=== PATIENT | male | born 1935 | race Caucasian/White ===

== ENCOUNTER 2023-04-15 13:23 | Outpatient (RCR) | payer MEDICARE, OTHER, SELFPAY | END 2023-04-15 23:59 | disposition home or self-care (01) | LOC: RPT 13:23 | PROVIDERS: ATTENDING PHYSICIAN Internal Medicine; FAMILY PHYSICIAN Family Medicine | DX: R26.89 Other abnormalities of gait and mobility (principal); Z73.6 Limitation of activities due to disability | CPT/HCPCS: 97110; 97162; 97535 ==

== ENCOUNTER 2023-04-29 15:10 | Outpatient (RCR) | payer MEDICARE, OTHER, SELFPAY | END 2023-04-29 23:59 | disposition home or self-care (01) | LOC: RPT 15:10 | PROVIDERS: ATTENDING PHYSICIAN Internal Medicine; FAMILY PHYSICIAN Family Medicine | DX: R26.89 Other abnormalities of gait and mobility (principal); Z73.6 Limitation of activities due to disability | CPT/HCPCS: 97110 ==

== ENCOUNTER → 2023-06-27 11:28 | Outpatient (REF) | payer MEDICARE, OTHER, SELFPAY | LOC: RAD 11:28 | PROVIDERS: ATTENDING PHYSICIAN Nurse Practitioner Primary Care; FAMILY PHYSICIAN Family Medicine | DX: C84.08 Mycosis fungoides, lymph nodes of multiple sites (principal); C61 Malignant neoplasm of prostate; C79.51 Secondary malignant neoplasm of bone; C78.7 Secondary malignant neoplasm of liver and intrahepatic bile duct; Z51.12 Encounter for antineoplastic immunotherapy | CPT/HCPCS: 71046 ==

== ENCOUNTER → 2023-09-30 08:39 | Outpatient (REF) | payer MEDICARE, OTHER, SELFPAY | LOC: RAD 08:39 | PROVIDERS: ATTENDING PHYSICIAN Internal Medicine Hematology & Oncology | DX: C84.08 Mycosis fungoides, lymph nodes of multiple sites (principal); C61 Malignant neoplasm of prostate; C79.51 Secondary malignant neoplasm of bone; C78.7 Secondary malignant neoplasm of liver and intrahepatic bile duct; Z51.12 Encounter for antineoplastic immunotherapy | CPT/HCPCS: 71046 ==

== ENCOUNTER → 2023-10-16 11:45 | Outpatient (REF) | payer MEDICARE, BC, SELFPAY | LOC: HWRAD 11:45 | PROVIDERS: ATTENDING PHYSICIAN Nurse Practitioner Family; FAMILY PHYSICIAN Family Medicine | DX: C84.08 Mycosis fungoides, lymph nodes of multiple sites (principal); C61 Malignant neoplasm of prostate | CPT/HCPCS: 71250 ==

== ENCOUNTER 2024-02-05 13:08 | Inpatient (IN) | payer MEDICARE, BC, SELFPAY ==
[2024-02-05] VITALS (10 sets, daily range): BP systolic 92–141; BP diastolic 50–75; BMI 21.7
[2024-02-05 10:05] LABS: % Basophils 0.3 % (0-2); % Eosinophils 0.4 % (0-6); % Immature Granulocytes 0.6 % (0-0.5); % Lymphocytes 5.2 % (20.5-51.1); % Monocytes 9.6 % (1.7-9.3); % Neutrophils 83.9 % (42.2-75.2); Absolute Eosinophils 0.1 10^3/uL (0-0.7); Absolute Immature Granulocytes 0.1 10^3/uL (0-0.05); Absolute Lymphocytes 0.7 10^3/uL (1.2-3.4); Absolute Monocytes 1.3 10^3/uL (0.1-0.6); Absolute Neutrophils 11.7 10^3/uL (1.4-6.5); Hematocrit 33.9 % (39.0-52.0); Hemoglobin 11.2 g/dL (13.0-18.0); Mean Corpuscular Hgb 32.2 pg (27.0-31.0); Mean Corpuscular Volume 97.4 fL (80.0-94.0); Mean Platelet Volume 10.4 fL (7.4-10.4); Nucleated Red Blood Cells % 0 % (-); Platelet Count 219 10^3/uL (130-400); Red Blood Cell Count 3.48 10^6/uL (4.70-6.10); Red Cell Dist. Width 15.9 % (11.5-14.5); White Blood Cell Count 13.9 10^3/uL (4.8-10.8)
[2024-02-05 10:18] LABS: ALT (SGPT) 80 U/L (0-50); AST (SGOT) 98 U/L (17-59); Albumin 4.4 g/dl (3.5-5.0); Alkaline Phosphatase 192 U/L (38-126); Blood Urea Nitrogen 40 mg/dl (9-20); Calcium 9.9 mg/dl (8.4-10.2); Carbon Dioxide 24 mmol/L (22-30); Chloride 103 mmol/L (98-107); Estimated Creatinine Clearance 24 ml/min; Glucose 120 mg/dl (70-99); Lipase 224 U/L (23-300); Potassium 3.5 mmol/L (3.5-5.1); Sodium 140 mmol/L (135-145); Total Bilirubin 0.7 mg/dl (0.2-1.3); eGFR 38.06
--- NOTE | 2024-02-05 10:29 | ED.GENMED ---
History of Present Illness
General
Chief Complaint: Bowel Problem
Source: patient and family
Exam Limitations: none
Time Seen by Provider: 02/05/24 09:59
History of Present Illness
History of Present Illness:
This is an 88-year-old male with a history of hypertension, hyperlipidemia metastatic prostate cancer who presents with severe constipation. He reports rectal pain and some lower abdominal discomfort. He admits he has been dealing with
constipation for a long time and no one can figure it out but over the last several days he has had real difficulties. He states he sometimes does get some loose stool that leaks out of his rectum. Patient did feel feverish today. He states he is
seeing colorectal surgery. He has tried many different medications without success. He states his hands are not strong enough to do an enema. Denies urinary complaint
Past History
Past History
ED Past Medical History: Cancer (Metastatic prostate cancer), GERD, HTN and Hypercholesterolemia
ED Past Surgical History: Orthopedic and Urological
Social History
Tobacco: Non-smoker
Alcohol: None
Drug: None
Personal: Other ()
Living: alone
Phy Exam
Physical Exam
Physical Exam:
CONSTITUTIONAL Patient alert and oriented to person, place and time. Well-appearing. Vital signs reviewed. Temperature 101.2 on my exam
HEAD atraumatic, normocephalic.
EYES eyelids normal to inspection, Extraocular muscles intact, Conjunctiva normal, Sclera normal.
NECK normal range of motion, Trachea midline, no jugular venous distention.
RESPIRATORY CHEST No respiratory distress noted, Chest expansion equal.
CARDIOVASCULAR regular and tachycardic
ABDOMEN abdomen distended. Moderate tenderness throughout the abdomen.
BACK normal inspection, no obvious deformities
UPPER EXTREMITY range of motion normal, Motor strength normal, no cyanosis, no edema.
LOWER EXTREMITY range of motion normal, Motor strength normal, no cyanosis, no edema.
NEURO Speech normal, No focal motor deficits, Jabier coma scale 15, Memory normal, Cranial Nerves intact to screening exam.
SKIN skin warm, dry, and normal in color.
Rectal exam, no gross blood. Perirectal area without evidence of infection
Course
Orders/Labs/Results
Orders:
Orders
02/05/24 09:58
Complete Blood Count/With Diff Urgent
Comprehensive Metabolic Panel Urgent
Lipase Urgent
02/05/24 10:24
Straight cath- Treatment ONCE
02/05/24 10:25
CT Abd/Pel (IV only)-DH only Urgent
Comment:
Reason For Exam: lower abd pain, fever, constipation
0.9% Sodium Chloride 1000 ml [Nss] 1,000 ml IV BOLUS
Acetaminophen [Tylenol] 1,000 mg PO NOW STA
02/05/24 10:37
Lactic Acid Q4H
Comment: CANCEL 2nd LACTIC ACID IF 1st LACTIC ACID IS LESS THAN 2
Blood Culture Q30M
NING Source: Blood/Venous
Specimen Description:
02/05/24 10:41
Urinalysis Reflex To Culture Urgent
Date Specimen was Collected: 02/05/24
Time Specimen was Collected: 10:36
Urine Microscopic Reflex Cult Urgent
Blood Culture Q30M
NING Source: Blood/Venous
Specimen Description:
02/05/24 11:31
COVID-19 Antigen Urgent
Source: Nasal Swab
02/05/24 11:51
Cefepime HCl [Maxipime] 1,000 mg IV NOW STA
MetroNIDAZOLE IVPB 500 mg IVPB NOW MetroNIDAZOLE 500 MG/100 ML [Flagyl 500 mg] 100 ml IV NOW
02/05/24 11:52
*Vancomycin 1,500 mg Loading Dose(consider for 50-69 kg; MAX HD load) Vancomycin [Vancocin] 1,500 mg 0.9% Sodium Chloride 500 ml [Nss] 500 ml IV NOW
Abnormal Lab Results
02/05/24 02/05/24
0958 10:41
WBC 13.9 H 10^3/uL
(4.8-10.8)
RBC 3.48 L 10^6/uL
(4.70-6.10)
Hgb 11.2 L g/dL
(13.0-18.0)
Hct 33.9 L %
(39.0-52.0)
MCV 97.4 H fL
(80.0-94.0)
MCH 32.2 H pg
(27.0-31.0)
RDW 15.9 H %
(11.5-14.5)
Abs Immat Gran (auto) 0.1 H 10^3/uL
(0-0.05)
Absolute Neuts (auto) 11.7 H 10^3/uL
(1.4-6.5)
Absolute Lymphs (auto) 0.7 L 10^3/uL
(1.2-3.4)
Absolute Monos (auto) 1.3 H 10^3/uL
(0.1-0.6)
Immature Gran % 0.6 H %
(0-0.5)
Neutrophils % 83.9 H %
(42.2-75.2)
Lymphocytes % 5.2 L %
(20.5-51.1)
Monocytes % 9.6 H %
(1.7-9.3)
BUN 40 H mg/dl
(9-20)
Creatinine 1.7 H mg/dL
(0.7-1.3)
Glucose 120 H mg/dl
(70-99)
AST 98 H U/L
(17-59)
ALT 80 H U/L
(0-50)
Alkaline Phosphatase 192 H U/L
(38-126)
Urine Albumin (Reflex) 1+ A
(Neg - Trace)
02/05/24 09:58
02/05/24 09:58
Vital Signs
Temp: 101.2 F
Initial and Last Documented VS:
Initial Vital Signs
Temp Pulse Resp BP Pulse Ox
98.4 F 121 18 114/74 97
02/05/24 09:42 02/05/24 09:42 02/05/24 09:42 02/05/24 09:42 02/05/24 09:42
Last Documented Vital Signs
Temp Pulse Resp BP Pulse Ox
99.3 F 106 17 103/50 96
02/05/24 11:32 02/05/24 11:15 02/05/24 11:15 02/05/24 11:15 02/05/24 11:15
MDM/Problems Addressed
MDM/Problems Addressed:
Constipation, fever, possible colitis, possible common bile duct obstruction
*Pulse Oximetry
Patient hypoxic: no
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
Rate: tachycardiac
Interpretation: abnormal
Rhythm: sinus
*Critical Care Note
Total Time (30-74mins, 75-104mins- exclusive of procedures): Not Applicable
Data Reviewed
Review of Other/Old Records Reveals: Discharge Summary
Source: patient and family
Prescriptions/Medications Considered But Not Given:
Considered Zosyn but patient reports rash when he was young. I do think it is reasonable to progress with cephalosporin
Patient Management
Discussion with other providers: Hospitalist
Escalation/DeEscalation of care consider admission/obs:
88-year-old male who presents with complaints of abdominal discomfort, constipation and found to be febrile. Does have a leukocytosis with left shift and recently stopped chemotherapy. Did present with mild hypotension and tachycardia which has
improved. CT shows questionable colitis. Does have filling defects in the biliary tree but bilirubin normal and no pericholecystic fluid. Cover with broad-spectrum antibiotics and admit.
ED Attending Note
-
Portions of this chart may have been created with voice recognition software.� Occasional wrong word or��sound alike� substitutions may have occurred due to the inherent limitations of voice recognition software.
Discharge Plan
Departure
Patient Disposition: Admit
Date of Disposition: 02/05/24
Time of Disposition: 11:55
Presentation/result/management discussed w/ accepting MD/DO: Hospitalist
Discharge Problem:
Sepsis, Constipation, Possible colitis, Possible partial biliary obstruction
Prescriptions:
No Action
atorvastatin 40 MG tablet
40 mg PO QPM
lorazepam 0.5 MG tablet
0.5 mg PO HS PRN (Reason: sleep)
famotidine 40 mg Tablet
40 mg PO HS
Lupron Depot (6 Month) 45 mg Syringe Kit
45 mg IM [id number]
amlodipine 5 mg Tablet
5 mg PO DAILY
losartan-hydrochlorothiazide 50-12.5 mg Tablet
1 tab PO DAILY
calcium carbonate-vitamin D3 [Calcium 600 + D(3)] 600 mg-10 mcg (400 unit) Tablet
1 tab PO BID
Xtandi 40 mg Tablet
120 mg PO DAILY@1200
polyethylene glycol 3350 [Miralax] 17 gram Powder In Packet
17 g PO DAILY
ferrous sulfate [Iron (ferrous sulfate)] 325 mg (65 mg iron) Tablet
325 mg PO DAILY
acetaminophen 325 mg Tablet
650 mg PO Q4HPRN PRN (Reason: mild pain /fever >100.4) Qty: 1 0RF
tramadol 50 mg Tablet
50 mg PO Q6HPRN PRN (Reason: moderate pain) Qty: 20 0RF
Referrals:
Quincy Higgins DO [Family Provider] -
Interventions
Interventions:
*Risk Screen - Suicide Last Done: 02/05/24 09:42
*General Assessment Last Done: 02/05/24 09:42
*Neglect/Abuse Screening Last Done: 02/05/24 09:42
ED- Fall Risk Assessment Last Done: 02/05/24 09:54
*ED COVID-19 Vaccine History Last Done: 02/05/24 09:54
[facility] Assessment Last Done: 02/05/24 09:54
Discharge Date and Time
Print Language: EAST [place]
[2024-02-05] MEDS: TYLENOL 1000 MG PO (10:30)
[2024-02-05] MEDS: NSS 1000 IV (10:30)
[2024-02-05 11:03] LABS: Urine Albumin 1+ (Neg - Trace); Urine Bilirubin Negative (Negative); Urine Character Clear (Clear); Urine Color Yellow; Urine Glucose Negative (Negative); Urine Ketone Negative (Negative); Urine Leukocyte Negative (Negative); Urine Nitrite Negative (Negative); Urine Occult Blood Negative (Negative); Urine Urobilinogen Negative (Neg - 1+); Urine pH 6.5 (5.0-9.0)
[2024-02-05 11:05] LABS: Lactic Acid 1.5 mmol/L (0.7-2.0)
[2024-02-05] MEDS: MAXIPIME 1000 MG IV ×2 (11:57→23:56)
[2024-02-05] MEDS: FLAGYL 500 MG 100 IV (12:00)
[2024-02-05 12:16] LABS: COVID-19 Antigen Negative (Negative)
--- NOTE | 2024-02-05 12:30 | HPS.HSE ---
Family Physician
-
Family Physician: Quincy Higgins
Chief Complaint
-
constipation
History of Present Illness
HPI
88F HX Metastatic Prostate CA s/p XRT HTN, HLD, -year-old male with a history of hypertension, HLD een at ER:
- reports severe constipation had been dealing with it for a long time and he has had real difficulties.
- associated rectal pain and some lower abdominal discomfort.
- sometimes does get some loose stool that leaks out of his rectum.
- report feverish today
- Denies urinary complaint
At ER:
Tmax 102 , ST, Hypotensive
New abn LFTs with nl TB
Medical History
Past Medical History
Past Medical History: Reports Cancer (Prostate), GERD and HTN
Past Surgical History: Reports Orthopedic
Social History
Tobacco: Non-smoker
Alcohol: None
Drug: None
Family History
Family History: Not pertinent
Allergies / Home Medications
Allergies reflects when Allergies were last updated in [email or web address].
Home Medications with original date entered in [email or web address]
Allergy/Medication List:
Allergies
Allergy/AdvReac Type Severity Reaction Status Date / Time
Penicillins Allergy Hives Verified 03/08/23 09:19
sulfamethoxazole Allergy Rash Verified 03/08/23 09:19
[From Bactrim]
trimethoprim [From Bactrim] Allergy Rash Verified 03/08/23 09:19
ciprofloxacin AdvReac Mild Pharmacy Verified 03/08/23 09:19
to Review
levofloxacin [From Levaquin] AdvReac Pharmacy Verified 03/08/23 09:19
to Review
Home Medications
atorvastatin 40 mg tablet 40 mg PO QPM High Cholesterol 02/14/18
lorazepam 0.5 mg tablet 0.5 mg PO HS PRN sleep 02/14/18
famotidine 40 mg tablet 40 mg PO HS Gastrointestinal Issue 11/16/22
leuprolide acetate (6 month) 45 mg intramuscular syringe kit (Lupron Depot) 45 mg IM [id number] prostate cancer 11/16/22
amlodipine 5 mg tablet 5 mg PO DAILY Blood Pressure 03/08/23
calcium carbonate 600 mg-vitamin D3 10 mcg (400 unit) tablet (Calcium 600 + D(3)) 1 tab PO BID Supplement 03/08/23
enzalutamide 40 mg tablet (Xtandi) 120 mg PO DAILY@1200 prostate cancer 03/08/23
losartan 50 mg-hydrochlorothiazide 12.5 mg tablet 1 tab PO DAILY Blood Pressure 03/08/23
methylprednisolone 4 mg tablets in a dose pack (Medrol (Odilon)) 0 mg PO PER PKG DIR inflammation 03/08/23
naproxen sodium 220 mg tablet (Aleve) 220 mg PO Q8HPRN PRN mild pain 03/08/23
polyethylene glycol 3350 17 gram oral powder packet (Miralax) 17 g PO DAILY Gastrointestinal Issue 03/08/23
Review of Systems
-
Constitutional: Reports No Symptoms
EENT: Reports No Symptoms
Respiratory: Reports No Symptoms
Cardiac: Reports No Symptoms
Abdomen/GI: Reports See HPI and Constipated
: Reports No Symptoms
Musculoskeletal: Reports No Symptoms
Skin: Reports No Symptoms
Neurological: Reports No Symptoms
Endocrine: Reports No Symptoms
Hematologic/Lymphatic: Reports No Symptoms
Psych: Reports No Symptoms
Physical Exam
Vital Signs
Vital Signs
Temp Pulse Resp BP Pulse Ox
99.3 F 102 20 106/58 94
02/05/24 11:32 02/05/24 12:00 02/05/24 12:00 02/05/24 12:00 02/05/24 12:00
Physical Exam
General: No Apparent Distress, Comfortable and Conversant; No Pain
HEENT: Anicteric and Moist mucous membranes
Respiratory: Clear; No Wheezes, Rales or Rhonchi
Cardiac: S1/S2 and Regular Rhythm; No Murmur
Breast: Deferred by me
GI: Soft, Non Tender and Normal Bowel Sounds; No Tender
Rectal: Deferred by Provider
Genito-urinary: Deferred by me
Musculoskeletal: No Edema
Neuro: AO x 3 and No Motor Deficits
Psych: Calm and Intact Judgment/Insight
Laboratory Results
-
02/05/24 09:58
02/05/24 09:58
Laboratory Results
Lactic Acid Cancelled 02/05/24 14:30
Total Bilirubin 0.7 mg/dl (0.2-1.3) 02/05/24 09:58
AST 98 U/L (17-59) H 02/05/24 09:58
ALT 80 U/L (0-50) H 02/05/24 09:58
Alkaline Phosphatase 192 U/L (38-126) H 02/05/24 09:58
Lipase 224 U/L (23-300) 02/05/24 09:58
Data Reviewed
-
CT Scan: Report Reviewed by me
Lab Data: Labs Reviewed by me
Old Records: Reviewed
Impression/Plan
-
Reviewed VS:
Vital Signs
Temp Pulse Resp BP Pulse Ox
99.3 F 102 20 106/58 94
02/05/24 11:32 02/05/24 12:00 02/05/24 12:00 02/05/24 12:00 02/05/24 12:00
Selected Entries
02/05/24
10:00 02/05/24
10:29 02/05/24
11:15
Temp 101.2 F H
Pulse 113 106
Blood pressure 92/63 103/50
Laboratory Tests
03/08/23 03/09/23 02/05/24
08:27 07:16 09:58
WBC 13.9 H
Hgb 10.7 L 11.2 L
MCV 97.4 H
BUN 40 H
Creatinine 1.7 H
eGFR 38.06
AST 51 98 H
ALT 40 80 H
Alkaline Phosphatase 192 H
NEG straight cath UA
NEG Covid pending
BCx sent
CT Abd/Pel (IV only)-DH only
1. Filling defects are seen within the common bile duct proximally and distally, measuring up to 1.9 cm in diameter. Findings may related to choledocholithiasis, or intraductal masses/metastases. Mild intrahepatic biliary ductal dilation.
2. Wall thickening within the distal rectum, may be related to mild colitis or prior prostate cancer treatment.
3. Multiple hepatic metastases, pulmonary metastases, and osseous metastases, grossly unchanged compared to prior PET/CT dated 01/20/2024. Ovoid presacral mass, unchanged compared to prior PET/CT, likely representing metastasis.
4. Diffuse wall thickening of the urinary bladder, which is decompressed. Wall thickening may be related to prior therapy, decompression, and/or cystitis
Last hospitalist admission:
Date of Admission: 03/08/23 -Date of Discharge: 03/09/23
Primary diagnosis:
Spontaneous right iliopsoas hematoma
Secondary diagnosis:
Metastatic prostate cancer
Hypertension
ASSESSMENT & PLAN
Sepsis with hypotension: 1.4 L septic NS fluid bolus
Source : Biliary vs Colitis
NEG straight cath UA
HX PCN allergy but tolerates to CFP
- IVF : switch to LR IVF @100/H
- agree with IV Vancomycin Cefepime plus Flagyl
- check MRSA screen
- f/u BCx
- ID consult
Filling defects are seen within the common bile duct proximally and distally,
choledocholithiasis, or intraductal masses/metastases.
Mild intrahepatic biliary ductal dilation
New onset mild transaminitis. Nl TB
- Full liquid for now
- MRCP
- GI consult
Constipation
Wall thickening within the distal rectum suggestive of mild colitis DDX: stercolral colitis but Radiation realted chages
- IVF
- Zosyn
- Miralax and senna
- Fleet enema
BECCA due to sepsis : current Cr 1.7
Underlying CKD3 with baseline Cr 1.3
- LR IVF and f/u Cr
- f/u UO
Metastatic prostate cancer. s/p XRT to left hip with bony mets.
On hormonal and immune therapy.
Hypertension
- Hold Amlodipine, Losartan/ HCTZ
HLD
-hold atorvastatin due to new abn LFTS
DVT Px: LMWH
Full code
IP TLM
[2024-02-05 12:41] LABS: Urine Amorphous Seen; Urine Mucus Few
[2024-02-05 12:43] LABS: Urine Hyaline Cast 0-2 /LPF (0-2); Urine Red Blood Cell 0-2 /HPF (0-2); Urine White Cell 0-2 /HPF (0-5)
[2024-02-05 12:44] LABS: Urine Urothelial Cell 0-2 /LPF (FEW)
--- NOTE | 2024-02-05 13:19 | CON.GI ---
Consultation
-
Date/Time Consultation Requested: 02/05/24 14:34 pm
Date/Time Consultation Performed: 02/05/24 14:41 pm
Requesting Provider: Cordlel Garcia MD
Performing Provider: Carolyn Barrett MD
Reason for Consultation: Severe constipation, mild transaminases, coledocholithiasis?
Medical History
Chief Complaint / HPI
Chief Complaint: rectal pain, constipation
History of Present Illness:
The patient is a 88 year old male who presented to ER complaining from severe constipation along rectal pain. The patient has a PMH of Metastatic Prostate CA s/p XRT, HTN and HLD. He was seen by his oncologist Dr Antonino Jacob on 01/29/24 and was
scheduled to [facility] to start a new medication for due developing tolerance to Taxotere. He reported having constipation for years especially after he was started on immunotherapy/chemotherapy to address his metastatic prostatic cancer. He
stated someday he has leaking stool all the day and the following days he becomes severely constipated even he has been taking 2 different stool softener including Medi-Mucil and Miralax. He reports taking these laxatives in different amounts and
his last taking Miralax was yesterday as 3 doses and it did not help him. He reported having difficulty using enemas at home feeling weakness in his hands. Patient reported he saw a colorectal surgeon about 6 months ago related his constipation
and was told he is mechanically does not have any problem and his sphincter works fine. He also reported to be seen a pelvic floor installation mechanic and did not have any benefit. Patient denies any associated dysphagia, vomiting, heartburn, abdominal
pain, stool color change, rectal bleeding, urine color change. The patient endorses feeling feverish and reported having chills only this morning.
Past Medical History
Past Medical History: Cancer, GERD and Other (prostate cancer )
Past Surgical History: Other (orthopedic )
Social History
Tobacco: Non-Smoker
Alcohol: None
Drug: None
Personal: Single
Living: Alone
Employment: Retired
Family History
Family History: Reviewed & Not Pertinent (no family colon cancer )
Allergies / Home Medications
Allergy/AdvReac Type Severity Reaction Status Date / Time
Penicillins Allergy Hives Verified 02/05/24 09:42
sulfamethoxazole Allergy Rash Verified 02/05/24 09:42
[From Bactrim]
trimethoprim [From Bactrim] Allergy Rash Verified 02/05/24 09:42
ciprofloxacin AdvReac Mild Pharmacy Verified 02/05/24 09:42
to Review
levofloxacin [From Levaquin] AdvReac Pharmacy Verified 02/05/24 09:42
to Review
�Medication �Instructions �Recorded
atorvastatin 40 mg tablet 40 mg PO QPM High Cholesterol 02/14/18
famotidine 40 mg tablet 40 mg PO HS Gastrointestinal Issue 11/16/22
leuprolide acetate (6 month) 45 mg 45 mg IM [id number] prostate cancer 11/16/22
intramuscular syringe kit (Lupron
Depot)
amlodipine 5 mg tablet 5 mg PO DAILY Blood Pressure 03/08/23
calcium 600 mg (as 1 tab PO BID Supplement 03/08/23
carbonate)-vitamin D3 10 mcg (400
unit) tablet (Calcium 600 + D(3))
losartan 50 mg-hydrochlorothiazide 1 tab PO DAILY Blood Pressure 03/08/23
12.5 mg tablet
polyethylene glycol 3350 17 gram 17 g PO DAILYPRN PRN CONSTIPATION 03/08/23
oral powder packet (Miralax)
ferrous sulfate 325 mg (65 mg 325 mg PO DAILY Supplement 03/09/23
iron) tablet (Iron (ferrous
sulfate))
isotretinoin 20 mg capsule 20 mg PO HS 02/05/24
lorazepam 1 mg tablet 1 mg PO HS 02/05/24
prednisone 5 mg tablet 5 mg PO DAILY 02/05/24
psyllium 1 packet PO DAILYPRN PRN 02/05/24
CONSTIPATION
Review of Systems
-
History Source: Patient
Constitutional: Reports No Symptoms
EENT: Reports No Symptoms
Respiratory: Reports No Symptoms
Cardiac: Reports No Symptoms
Abdomen/GI: Reports Other (See HPI )
: Reports No Symptoms
Musculoskeletal: Reports No Symptoms
Skin: Reports No Symptoms
Neurological: Reports No Symptoms
Vital Signs
Temp Pulse Resp BP Pulse Ox
99.3 F 101 17 106/58 93
02/05/24 11:32 02/05/24 12:15 02/05/24 12:15 02/05/24 12:00 02/05/24 12:15
Physical Exam
Exam
General: No Apparent Distress, Comfortable and Pain
HEENT: Normocephalic and Anicteric
Respiratory: Clear
Cardiac: S1/S2 and Regular Rhythm
GI: Soft, Non Tender, Distended and Other (Slightly tympanic and slightly distended )
Rectal: Brown
Musculoskeletal: No Cyanosis and No Edema
Skin: Warm
Neuro: Awake, Alert, Oriented and AO x 3
Results
WBC 13.9 10^3/uL (4.8-10.8) H 02/05/24 09:58
Hgb 11.2 g/dL (13.0-18.0) L 02/05/24 09:58
Hct 33.9 % (39.0-52.0) L 02/05/24 09:58
MCV 97.4 fL (80.0-94.0) H 02/05/24 09:58
Plt Count 219 10^3/uL (130-400) 02/05/24 09:58
Absolute Neuts (auto) 11.7 10^3/uL (1.4-6.5) H 02/05/24 09:58
Sodium 140 mmol/L (135-145) 02/05/24 09:58
Potassium 3.5 mmol/L (3.5-5.1) 02/05/24 09:58
Chloride 103 mmol/L (98-107) 02/05/24 09:58
Carbon Dioxide 24 mmol/L (22-30) 02/05/24 09:58
BUN 40 mg/dl (9-20) H 02/05/24 09:58
Creatinine 1.7 mg/dL (0.7-1.3) H 02/05/24 09:58
Calcium 9.9 mg/dl (8.4-10.2) 02/05/24 09:58
Total Bilirubin 0.7 mg/dl (0.2-1.3) 02/05/24 09:58
AST 98 U/L (17-59) H 02/05/24 09:58
ALT 80 U/L (0-50) H 02/05/24 09:58
Alkaline Phosphatase 192 U/L (38-126) H 02/05/24 09:58
Lipase 224 U/L (23-300) 02/05/24 09:58
Diagnostic Image Results:
Abd/Pelvis CT 02/05/24
IMPRESSION:
1. Filling defects are seen within the common bile duct proximally and distally, measuring up to 1.9 cm in diameter. Findings may related to choledocholithiasis, or intraductal masses/metastases. Mild intrahepatic biliary ductal dilation.
2. Wall thickening within the distal rectum, may be related to mild colitis or prior prostate cancer treatment.
3. Multiple hepatic metastases, pulmonary metastases, and osseous metastases, grossly unchanged compared to prior PET/CT dated 01/20/2024. Ovoid presacral mass, unchanged compared to prior PET/CT, likely representing metastasis.
4. Diffuse wall thickening of the urinary bladder, which is decompressed. Wall thickening may be related to prior therapy, decompression, and/or cystitis
PET CT 01/20/24
FINDINGS:
HEAD and NECK:
No suspicious FDG-avid lesions.
Prior bilateral lens replacement. Dental amalgam with associated streak artifact.
CHEST:
MEDIASTINUM: No suspicious FDG-avid lesions.
LUNGS: There are numerous hypermetabolic lung nodules. Indexed lesions as follows:
-Anterior right upper lobe nodule measures 1.3 cm, previously 1.1 cm with a max SUV of 5.1 previously 3.9 (series 4 image 66).
-Medial right lower lobe nodule appears 1.6 cm, previously 1.4 cm with a max SUV of 7.0, previously 4.0 (series 4 image 26).
Moderate coronary artery calcifications. Moderate atherosclerotic calcifications of the thoracic aorta. Small hiatal hernia.
ABDOMEN and PELVIS:
There are numerous hypermetabolic lesions throughout the liver. Index lesions as follows:
-The lesion in the liver dome anteriorly demonstrates a max SUV of 3.7, previously 4.3.
-The anterior left hepatic lobe lesions demonstrates a max SUV of 5.5, previously 4.8.
-Inferior anterior left hepatic lobe lesion demonstrates a max SUV of 5.7, previously 5.1.
-Inferior right lateral hepatic lesion-a max SUV of 5.6, previously 5.1.
There is a likely new lesion within the lateral segment of the left hepatic lobe with a max SUV of 4.6.
Cholelithiasis. Numerous bilateral renal cysts. Colonic diverticulosis. There is a urinary bladder diverticulum along the anterolateral aspect of the urinary bladder. Moderate atherosclerotic calcifications of the abdominal aorta and branch vessels.
SKELETON:
There is increased size of the sacral soft tissue lesion extending into the left S3 and S4 sacral foramen which measures 4.1 x 1.9 cm with a max SUV of 4.3, previously 4.2.There is a new hypermetabolic focus within the L5 vertebral body with a max
SUV of 5.1. For metabolic activity within the left superior acetabulum with a max SUV of 6.2, previously 4.3
Lateral plate and screw fixation of the proximal left humerus. Intramedullary dakota and screw fixation of the proximal left femur. Intraosseous hemangioma within the L2 vertebral body
Prior GI Procedures:
EGD: Not known
Sigmoidoscopy: 03/14/22
Findings:
Multiple diverticula were found in the sigmoid colon. stool seen in the
distal sigmoid obscuring view.
The rectum was short with some mild prolapse. The retroflexed view of
the distal rectum and anal verge was normal and showed no anal or rectal
abnormalities.
Impression: - Preparation of the colon was fair.
- Diverticulosis in the sigmoid colon. Short rectum,
mild prolapse
- No specimens collected.
Colonoscopy: 09/08/13
Findings:
The perianal and digital rectal examinations were normal.
The terminal ileum appeared normal.
A sessile polyp was found at 60 cm proximal to the anus. The polyp was 8
mm in size. The polyp was removed with a [place] cold forceps. Resection
and retrieval were complete. Estimated blood loss was minimal.
Two sessile polyps were found in the rectum and at 10 cm proximal to the
anus. The polyps were 3 to 4 mm in size. These polyps were removed with
a piecemeal technique using a cold biopsy forceps. Resection and
retrieval were complete. Estimated blood loss was minimal.
Non-bleeding internal hemorrhoids were found during retroflexion and
were small.
The exam was otherwise without abnormality on direct and retroflexion
views.
A few small and large-mouthed diverticula were found in the sigmoid
colon.
Impression: - The examined portion of the ileum was normal.
- One 8 mm polyp at 60 cm proximal to the anus. Resected
and retrieved.
- Two 3 to 4 mm polyps in the rectum and at 10 cm
proximal to the anus. Resected and retrieved.
- Non-bleeding internal hemorrhoids.
- The examination was otherwise normal on direct and
retroflexion views.
- Diverticulosis in the sigmoid colon.
Colonoscopy Biopsy Results: on 09/08/13
3 mm polyp colon at 60 cm (biopsy)
A. - Adenomatous polyp.
-Levels are examined.
B. 2 polyps rectum (biopsy)
? -Hyperplastic polyps, two
-Levels are examined.
Assessment / Plan
-
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 He presented to ER with severe constipation along rectal pain and reported his constipation got worsened recently. He
reported he has chronic constipation problem for years and was seen a colorectal surgery about 6 months ago and was told he is mechanically does pot have a problem. He has been taking 2 different l stool softener including Medi-Mucil and Miralax.
He reports taking these laxatives in different amounts and his last taking Miralax was yesterday as 3 doses and it did not help him to have a bowel movement. He reported having difficulty using enemas at home feeling weakness in his hands.
Patient denies any associated dysphagia, vomiting, heartburn, abdominal pain, stool color change, rectal bleeding, urine color change. The patient endorses feeling feverish and reported having chills only this morning.
Assessment/Plan:
#Constipation likely outlet dysfunction
-Rectal exam revealed hard stool in the distal rectum
-Fleet enema was ordered for once
-Mg Citrate was ordered for once with caution due BECCA
-Patient has been on Iron and it can be contributing to his chronic constipation. Iron studies were ordered
#Common bile duct Filling defects along transaminitis possibly due metastatic cancer
-Abd/Pelvis CT: Filling defects are seen within the common bile duct proximally and distally, measuring up to 1.9 cm in diameter
-Hx of metastatic prostate cancer including liver mets
-No abdominal pain/dark urine/kulkarni colored stool
-AST 98 ALT 80: slightly elevated
-MRCP was ordered
-EUS can be considered if MRCP does not help to differentiate the Filling defect due either choledocholithiasis or intraductal masses in common bile duct
-
-
Thank you for consultation and allowing me to participate in the patient's care. Please call the resourcing consultant GI physician during the after hours with any questions or concerns.
[2024-02-05] MEDS: VANCOCIN 530 MG IV (13:20)
--- NOTE | 2024-02-05 14:03 | CON.ID ---
Addendum entered and electronically signed by Gary Serra, 02/05/24 17:21:
I personally performed a history and physical exam of the patient and discussed management with the resident. I reviewed the resident's note and agree with the documented findings and plan of care HPI/CC.
Reports history of rash as a child following penicillin. Suspects he may have tolerated amoxicillin or Augmentin in the interim since.
No noted rebound, guarding or rigidity on abdominal exam.
Continue with cefepime and metronidazole for the present.
Monitor white count and temperature curve. Follow-up pending cultures.
Continue with bowel regimen.
Will continue to follow along for clinical improvement.
Original Note:
Chief Complaint / Past History
Chief Complaint
Constipation
History of Present Illness
This is an 88-year-old male patient with past medical history of metastatic prostate cancer s/p radiation, GERD and HTN who presented to the ED with concerns of constipation. For the past 4 to 5 days he has been experiencing severe constipation and
had been unable to pass a bowel movement. This is a chronic problem which he has dealt with for many years. This morning when he tried to pass a bowel movement he had associated severe rectal pain along a low-grade fever and with lower abdominal
pain which had prompted him to come to the ER. He denies chills, vomiting or dysuria.
Patient states that he is allergic to penicillins (rash during his childhood) and ciprofloxacin.
Upon presentation to the ER, he was tachycardic, RR 20, hypotensive.
Past History
Past Medical History: Cancer (Prostate), GERD and HTN
Past Surgical History: Orthopedic
Allergy History:
Penicillins Allergy (Verified 02/05/24 09:42)
Hives
sulfamethoxazole [From Bactrim] Allergy (Verified 02/05/24 09:42)
Rash
trimethoprim [From Bactrim] Allergy (Verified 02/05/24 09:42)
Rash
ciprofloxacin Adverse Reaction (Mild, Verified 02/05/24 09:42)
Pharmacy to Review
levofloxacin [From Levaquin] Adverse Reaction (Verified 02/05/24 09:42)
Pharmacy to Review
Social History
Tobacco: Non-Smoker
Alcohol: None
Drug: None
Review of Systems
Review of Systems
General: Negative Fever or Chills
Gasteroenterology: Other (constipation)
All systems: All other systems were reviewed and were negative
Vital Signs
Temp Pulse Resp BP Pulse Ox
99.3 F 101 17 106/58 93
02/05/24 11:32 02/05/24 12:15 02/05/24 12:15 02/05/24 12:00 02/05/24 12:15
Physical Exam
Physical Exam
Constitutional: No Acute Distress
Cardiovascular: Regular Rate and S1/S2
Pulmonary: Clear
Gastrointestinal: Soft, Non Tender and Distended
Skin: Warm and Dry
Neurological: Awake, Alert and Oriented
Lab / Diagnostic Study Results
02/05/24 09:58
02/05/24 09:58
Abs Immat Gran (auto) 0.1 10^3/uL (0-0.05) H 02/05/24 09:58
Absolute Neuts (auto) 11.7 10^3/uL (1.4-6.5) H 02/05/24 09:58
Absolute Lymphs (auto) 0.7 10^3/uL (1.2-3.4) L 02/05/24 09:58
Absolute Monos (auto) 1.3 10^3/uL (0.1-0.6) H 02/05/24 09:58
Absolute Basos (auto) 0.0 10^3/uL (0-0.2) 02/05/24 09:58
Immature Gran % 0.6 % (0-0.5) H 02/05/24 09:58
Neutrophils % 83.9 % (42.2-75.2) H 02/05/24 09:58
Lymphocytes % 5.2 % (20.5-51.1) L 02/05/24 09:58
Monocytes % 9.6 % (1.7-9.3) H 02/05/24 09:58
Eosinophils % 0.4 % (0-6) 02/05/24 09:58
Basophils % 0.3 % (0-2) 02/05/24 09:58
Lactic Acid Cancelled 02/05/24 14:30
Ur Squamous Epith Cells 3-5 /LPF (Few) 02/05/24 10:41
Microbiology Results
Micro:
02/05/24 10:37 Blood Culture - Pending
Blood/Venous
02/05/24 10:41 Blood Culture - Pending
Blood/Venous
Assessment / Plan
Severe Constipation
Febrile
Leukocytosis
Hx Metastatic Prostate CA s/p XRT,
HTN
Recommendations:
-Afebrile at time of exam (had spike of 101.2 earlier in day)
-CT Abdomen: Filling defects are seen within the common bile duct proximally and distally, measuring up to 1.9 cm in diameter. Mild intrahepatic biliary ductal dilation. Multiple hepatic metastases, pulmonary metastases, and osseous metastases that
were previously noted in prior imaginings.
-WBC elevated 13.9, elevated LFTs, Cr 1.7 (baseline is 1.3)
-Blood Cultures: pending
-Monitor temp curve and WBC count
-Discontinue Vancomycin as not needed at this time
-Will continue cefepime and Flagyl (will likely be short course as pt continues to improve
-Maintain bowel regimen
[2024-02-05] MEDS: SENOKOT 8.6 MG PO ×2 (15:23→20:47)
[2024-02-05] MEDS: MIRALAX 17 GRAMS PO (15:23)
--- NOTE | 2024-02-05 16:09 | PHA.VAN.IN ---
Assessment
- Assessment
Renal Function: Appears elevated from baseline (03/09/23)
Concomitant Antimicrobials: CEFEPIME, FLAGYL
- Previous Dosing Experience
Previous Regimen: NONE
Plan
- Plan
Initial / Loading Dose: 1500MG
Maintenance Regimen: DOSING BY RANDOM LEVEL
Monitoring: RANDOM VANCOMYCIN LEVEL 02/06/24 AM
Pharmacokinetics Vancomycin I
- -
Patient Age: 88
Patient Sex: Male
Vancomycin Day #: 1
Indication: Gi / Intra-Abdominal (SEPSIS)
Requesting Provider: LAURIE
Pertinent Antimicrobial Allergies:
Allergies
Penicillins Allergy (Verified 02/05/24 09:42)
Hives
ciprofloxacin Adverse Reaction (Mild, Verified 02/05/24 09:42)
Pharmacy to Review
Achilles pain
levofloxacin [From Levaquin] Adverse Reaction (Verified 02/05/24 09:42)
Pharmacy to Review
Achilles pain
sulfamethoxazole [From Bactrim] Allergy (Verified 02/05/24 09:42)
Rash
trimethoprim [From Bactrim] Allergy (Verified 02/05/24 09:42)
Rash
Height / Weight:
Height 5 ft 4 in
Actual Weight 57.289 kg
Pertinent Past Medical History: METASTATIC PROSTATE CANCER
- Vital Signs / Lab Results
Temp Pulse Resp BP Pulse Ox
98.2 F 100 18 122/75 95
02/05/24 14:46 02/05/24 14:46 02/05/24 14:46 02/05/24 14:46 02/05/24 14:46
Lab Results - Hematology
02/05/24
09:58
WBC 13.9 H
Lab Results - Chemistry
02/05/24
09:58
BUN 40 H
Creatinine 1.7 H
Estimated Creat Clear 24
Albumin 4.4
02/05/24 02/05/2402/04/24
10:37 14:30 15:06
Lactic Acid 1.5 Cancelled 1.0
Lab Results - Urine
02/05/24
10:41
Urine Nitrite (Reflex) Negative
Leukocyte Esterase Rfl Negative
Urine WBC (Reflex) 0-2
Ur Squamous Epith Cells 3-5
[2024-02-05] MEDS: LR 1000 IV (16:14)
[2024-02-05] MEDS: CITROMA 300 ML PO (16:21)
[2024-02-05] MEDS: LOVENOX 30 MG SC (17:46)
[2024-02-05 18:08] LABS: Iron 27 ug/dl (49-181)
[2024-02-05 18:17] LABS: Percent Saturation 9 % (20-50); Total Iron Binding Capacity 275 ug/dl (261-462)
[2024-02-05 18:20] LABS: Lactic Acid 1.6 mmol/L (0.7-2.0)
[2024-02-05] MEDS: PEPCID 20 MG PO (22:41)
[2024-02-05] MEDS: ATIVAN 1 MG PO (22:41)
[2024-02-05 22:53] LABS: Lactic Acid 1.3 mmol/L (0.7-2.0)
[2024-02-05] MEDS: STERILE WATER FOR INJECTION 10 ML IV (23:57)
[2024-02-06] MEDS: ZOFRAN 4 MG IV ×2 (00:28→17:54)
[2024-02-06 03:34] VITALS: BP 106/67
[2024-02-06] MEDS: LR 1000 IV (03:55)
[2024-02-06 07:31] LABS: INR 1.12; PT 14.9 Sec (11.4-14.6)
[2024-02-06 07:34] LABS: Vancomycin Random 11.1 ug/ml
--- NOTE | 2024-02-06 07:39 | W.PN.HOSP.TC ---
Today's Communication/Plan
-
abx as per ID
diet as per GI
Oncology eval
cont bowel regimen
Assessment / Plan
Assessment / Plan
Physical Exam
General: No Apparent Distress, Comfortable and Conversant; No Pain, Jaundice
HEENT: Anicteric and Moist mucous membranes
Respiratory: Clear; No Wheezes, Rales or Rhonchi
Cardiac: S1/S2 and Regular Rhythm; No Murmur
GI: Soft, Non Tender and Normal Bowel Sounds; No Tender
Musculoskeletal: No Edema
Neuro: AO x 3 and No Motor Deficits
Psych: Calm and Intact Judgment/Insight
88M HX Metastatic Prostate CA s/p XRT HTN, HLD p/w severe constipation rectal pain and some lower abdominal discomfort associate fever.
Sepsis with hypotension: 1.4 L septic NS fluid bolus
Source : Biliary vs Colitis
NEG straight cath UA
HX PCN allergy but tolerates to CFP
- IVF completed
- empiric IV Vancomycin Cefepime plus Flagyl
- check MRSA screen
- f/u BCx
- ID consult
Filling defects are seen within the common bile duct proximally and distally,
choledocholithiasis, or intraductal masses/metastases.
Mild intrahepatic biliary ductal dilation
New onset mild transaminitis. Nl TB
- MRCP appreciated
- GI consult appreciated ERCP recommended however patient declines at this time
Constipation resolved at this time
Wall thickening within the distal rectum suggestive of mild colitis DDX: stercoral colitis
-constipation since resolved with bowel regimen and enema
BECCA due to sepsis : current Cr 1.7
Underlying CKD3 with baseline Cr 1.3
- LR IVF and f/u Cr since improved to baseline
-BECCA resolved
Metastatic prostate cancer. s/p XRT to left hip with bony mets.
On hormonal and immune therapy.
Oncology Eval
Hx Hypertension p/w hypotension
- Hold Amlodipine, Losartan/ HCTZ
HLD
-hold atorvastatin due to new abn LFTS
DVT Px: LMWH
DNR as per patient
I spent a total of 50 minutes with the patient or on the floor. More than 50% of this time involved counseling and coordination of care.
Anticipated Discharge: 24 - 48 hours
Subjective/Interval History
-
Date of Service: February 06, 2024
No acute distress sitting up comfortably in bed. Reports nausea resolved, tolerating diet. Denies abd pain tenderness.
Objective Data
-
Labs:
Laboratory Results
02/06/24 02/06/24
06:51 07:11
WBC Pending
Hgb Pending
Hct Pending
Plt Count Pending
PT Pending
INR Pending
Sodium Pending
Potassium Pending
Chloride Pending
Carbon Dioxide Pending
BUN Pending
Creatinine Pending
Glucose Pending
Calcium Pending
Total Bilirubin Pending
AST Pending
ALT Pending
Alkaline Phosphatase Pending
Vital Signs:
Vital Signs
Temp Pulse Resp BP Pulse Ox
99.1 F 115 16 106/67 93
02/06/24 03:34 02/06/24 03:34 02/06/24 03:34 02/06/24 03:34 02/06/24 03:34
I&O
02/05/24 02/06/24 02/07/24
06:59 06:59 06:59
Intake Total 1200 / 1200
Balance 1200 / 1200
[2024-02-06 07:51] LABS: ALT (SGPT) 162 U/L (0-50); AST (SGOT) 198 U/L (17-59); Albumin 3.2 g/dl (3.5-5.0); Alkaline Phosphatase 217 U/L (38-126); Blood Urea Nitrogen 27 mg/dl (9-20); Calcium 8.5 mg/dl (8.4-10.2); Carbon Dioxide 25 mmol/L (22-30); Chloride 105 mmol/L (98-107); Estimated Creatinine Clearance 31 ml/min; Glucose 104 mg/dl (70-99); Potassium 3.5 mmol/L (3.5-5.1); Sodium 142 mmol/L (135-145); Total Bilirubin 2.9 mg/dl (0.2-1.3); Total Protein 5.6 g/dl (6.3-8.2); eGFR 52.51
[2024-02-06 08:04] VITALS: BP 113/67
[2024-02-06] MEDS: DELTASONE 5 MG PO (08:29)
[2024-02-06] MEDS: SENOKOT 8.6 MG PO (08:29)
[2024-02-06] MEDS: MIRALAX 17 GRAMS PO (08:29)
--- NOTE | 2024-02-06 08:33 | W.PN.GI.CBS2 ---
Today's Communication / Plan
-
-ERCP plan for tomorrow
Assessment / Plan
-
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 He presented to ER with severe constipation along rectal pain and reported his constipation got worsened recently. He
reported he has chronic constipation problem for years and was seen a colorectal surgery about 6 months ago and was told he is mechanically does pot have a problem in his rectal area including his sphincter. He has been taking 2 different l stool
softener including Medi-Mucil and Miralax. He reports taking these laxatives in different amounts, but these laxatives are not enough to regulate his BM. He reported having difficulty using enemas at home feeling weakness in his hands. The patient
reported having last BM about 5-6 days ago. Patient denies any associated dysphagia, vomiting, heartburn, abdominal pain, stool color change, rectal bleeding, urine color change. The patient was obtained an Abd CT at admission which showed: Wall
thickening within the distal rectum, may be related to mild colitis and his rectal exam revealed hard stool in the distal rectum. He was given enema and oral laxative and he had BM without any abdominal/rectal pain. Additionally his CT showed
filling defects within the common bile duct may related to choledocholithiasis, or intraductal masses/metastases. Therefore MRCP was ordered and it showed 2 large obstructing calculi in the distal common bile duct. ERCP is planned with Dr Pagan.
Assessment/Plan:
#Constipation likely outlet dysfunction
-Constipation was resolved after the patient was given enema and oral laxatives
-Continue home laxatives for now
-Patient has been on Iron and it can be contributing to his chronic constipation. Iron studies:Iron 27, Iron saturation 9L, Ferritin 670-Continue iron supplement
-Started on Low Residue diet
#Common bile duct Filling defects along transaminitis possibly due metastatic cancer vs CBD stone
-Hx of metastatic prostate cancer including liver mets
-Abd/Pelvis CT 02/05/24: Filling defects are seen within the common bile duct proximally and distally, measuring up to 1.9 cm in diameter
-MRCP 02/05/24:Moderate intrahepatic biliary dilatation-severe distention of the common hepatic duct and common bile duct proximal to 2 large obstructing calculi in the distal common bile duct- proximal common bile duct measures 1.2 cm in
diameter-obstructing calculi in the distal common bile duct measure 1.0 cm and 1.1 cm in diameter.
-AST increased from 98 to 198 ---ALT increased from 80 to 162-- TB increased from 0.7 to 2.9
-No urine color change/no kulkarni colored stool/no upper right sided abdominal pain this morning on 02/06/24
-ERCP with Dr Pagan is planned for tomorrow on 02/07/24
Subjective
Subjective
Date of Service: February 06, 2024
Patient reported having at least 6 loose bowel movements yesterday after he was given laxatives and had one soft formed BM this morning. Denies rectal, abdominal pain. Reported having chills last night.
Objective
Data Reviewed
Laboratory Data:
Laboratory Results
02/06/24 06:51
Laboratory Results
PT 14.9 Sec (11.4-14.6) H 02/06/24 06:51
INR 1.12 02/06/24 06:51
Total Bilirubin 2.9 mg/dl (0.2-1.3) H D 02/06/24 06:51
AST 198 U/L (17-59) H 02/06/24 06:51
ALT 162 U/L (0-50) H 02/06/24 06:51
Alkaline Phosphatase 217 U/L (38-126) H 02/06/24 06:51
Lipase 224 U/L (23-300) 02/05/24 09:58
Vital Signs and I&O:
Vital Signs
Temp Pulse Resp BP Pulse Ox
98.7 F 105 17 113/67 92
02/06/24 08:04 02/06/24 08:04 02/06/24 08:04 02/06/24 08:04 02/06/24 08:04
I&O
02/05/24 02/06/24 02/07/24
06:59 06:59 06:59
Intake Total 1200 / 1200
Balance 1200 / 1200
Physical Exam
Physical Exam
HEENT: Anicteric and Moist mucous membranes
Cardiology: Normal Sinus Rhythm, S1 and S2
Pulmonary: Clear
GI: Soft, Non Distended and Non Tender
Extremities: No Edema and Pulses Present
[2024-02-06 09:16] LABS: Mean Corp Hgb Conc. 32.1 g/dL (33.0-37.0); Mean Corpuscular Hgb 31.9 pg (27.0-31.0); Mean Corpuscular Volume 99.3 fL (80.0-94.0); Mean Platelet Volume 10.4 fL (7.4-10.4); Platelet Count 176 10^3/uL (130-400); Red Blood Cell Count 2.82 10^6/uL (4.70-6.10); Red Cell Dist. Width 15.9 % (11.5-14.5); White Blood Cell Count 7.5 10^3/uL (4.8-10.8)
--- NOTE | 2024-02-06 09:29 | W.PN.ID1 ---
Addendum entered and electronically signed by Gary Serra, 02/06/24 15:19:
I saw and evaluated the patient. I reviewed the resident�s note and agree with findings and plan as documented in the resident�s note.
Patient overall feeling improved. Admits to bowel movements overnight. No current fevers or chills. Denies abdominal pain.
Blood cultures negative thus far, and leukocytosis has resolved.
Transition to oral cefdinir and metronidazole.
Would continue with antibiotics for additional 7 to 10 days.
Discussed with Hospitalist service
Original Note:
Date of Service
Date of Service: February 06, 2024
Today's Communication
Continue IV abx
Assessment / Plan
Severe Constipation
Febrile
Leukocytosis
Hx Metastatic Prostate CA s/p XRT,
HTN
Recommendations:
-Afebrile at time of exam (had spike of 101.2 earlier yesterday)
-CT Abdomen: Filling defects are seen within the common bile duct proximally and distally, measuring up to 1.9 cm in diameter. Mild intrahepatic biliary ductal dilation. Multiple hepatic metastases, pulmonary metastases, and osseous metastases that
were previously noted in prior imaginings.
-WBC downtrending, continued elevation LFTs compared to yesterday, Cr 1.3 at baseline
-Blood Cultures: pending
-Monitor temp curve and WBC count
-Discontinued Vancomycin as not needed at this time
-Continue cefepime and Flagyl (will likely be short course as pt continues to improve)
-GI planning for ERCP but patient at this time is declining
-Maintain bowel regimen
Vital Signs / Physical Exam
Vital Signs
Vital Signs
Temp Pulse Resp BP Pulse Ox
98.7 F 105 17 113/67 92
02/06/24 08:04 02/06/24 08:04 02/06/24 08:04 02/06/24 08:04 02/06/24 08:04
Objective Data
Lab Data
Lab Results
02/06/24 07:11
02/06/24 06:51
PT 14.9 Sec (11.4-14.6) H 02/06/24 06:51
INR 1.12 02/06/24 06:51
Estimated Creat Clear 31 ml/min 02/06/24 06:51
Lactic Acid Cancelled 02/06/24 02:34
Total Bilirubin 2.9 mg/dl (0.2-1.3) H D 02/06/24 06:51
AST 198 U/L (17-59) H 02/06/24 06:51
ALT 162 U/L (0-50) H 02/06/24 06:51
Alkaline Phosphatase 217 U/L (38-126) H 02/06/24 06:51
Most recent labs reviewed.
Micro Results:
02/05/24 17:48 Blood Culture - Pending
Blood/Venous
02/05/24 15:16 MRSA Screen - Pending
Nose
02/05/24 15:06 Blood Culture - Pending
Blood/Venous
02/05/24 10:37 Blood Culture - Pending
Blood/Venous
02/05/24 10:41 Blood Culture - Pending
Blood/Venous
--- NOTE | 2024-02-06 10:12 | W.PN.UPDATE ---
Update Note
Progress Note Update
Discussed with patient who confirmed his preferred code status is DNR. Patient able to verbalize his understanding, reported that should he develop a cardiac arrest for any reason, he does not want to be resuscitated, does not want CPR, and simply
wants to be let go. AOx3 at capacity to make his own medical decisions, code status updated accordingly in respect of patient's decision.
--- NOTE | 2024-02-06 10:41 | CM ---
Patient seen bedside.
IA completed.
patient lives alone with in a 2 story home with 1 step to enter.
patient does have a dog.
patient ambulates with a cane for uneven surfaces.
patient drives.
Patient independent prior to admission.
patient shops for homself.
Patient interested in meals on wheels.
[2024-02-06] MEDS: FLAGYL 500 MG 100 IV (10:46)
[2024-02-06 11:55] VITALS: BP 101/65
--- NOTE | 2024-02-06 12:02 | CON.ONC ---
Impression
Impression
metastatic prostate cancer with recent POD on Taxotere, he has follow up at [facility] for next line therapy early February 2024
Goals remain restorative for cancer treatment
Constipation resolved with bowel regimen
abnormality CBD -does not want to pursue ERCP
Plan
Plan
abx per ID, follow cultures
bowel regimen
OP follow up with medical oncology at [facility] as schedule early February 2024
Patient History
History of Present Illness
88yo with metastatic prostate cancer who presented with fever, hypotension, and constipation. CT ab/pelvis showed filling defects are seen within the common bile duct proximally and distally, measuring up to 1.9 cm in diameter. Mild intrahepatic
biliary ductal dilation. Multiple hepatic metastases, pulmonary metastases, and osseous metastases that were previously noted in prior imaginings. He reports fever at home yesterday to 101F.
He denies any symptoms of infection including sinus congestion, cough, sob, n/v/d, abdominal pain or sick contacts. He has moved his bowels with aggressive regimen since admitted and feeling much better. He is on abx with cultures pending.
Past-Medical/Surgical History
PMH metastatic prostate cancer GERD, HTN
PSH orthopedic
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 denies smoking, ETOH or recreational drugs
Family non-contributory
Patient Medication
�Medication �Instructions �Recorded �Confirmed �Last Taken �Type
atorvastatin 40 mg tablet 40 mg PO QPM High Cholesterol 02/14/18 02/05/24 02/04/24 History
famotidine 40 mg tablet 40 mg PO HS Gastrointestinal Issue 11/16/22 02/05/24 02/04/24 History
leuprolide acetate (6 month) 45 mg 45 mg IM [id number] prostate cancer 11/16/22 02/05/24 4 Months Ago History
intramuscular syringe kit (Lupron ~11/06/22
Depot)
amlodipine 5 mg tablet 5 mg PO DAILY Blood Pressure 03/08/23 02/05/24 02/05/24 History
calcium 600 mg (as 1 tab PO BID Supplement 03/08/23 02/05/24 02/04/24 History
carbonate)-vitamin D3 10 mcg (400
unit) tablet (Calcium 600 + D(3))
losartan 50 mg-hydrochlorothiazide 1 tab PO DAILY Blood Pressure 03/08/23 02/05/24 02/05/24 History
12.5 mg tablet
polyethylene glycol 3350 17 gram 17 g PO DAILYPRN PRN CONSTIPATION 03/08/23 02/05/24 02/05/24 History
oral powder packet (Miralax)
ferrous sulfate 325 mg (65 mg 325 mg PO DAILY Supplement 03/09/23 02/05/24 02/04/24 History
iron) tablet (Iron (ferrous
sulfate))
isotretinoin 20 mg capsule 20 mg PO HS 02/05/24 02/05/24 02/04/24 History
lorazepam 1 mg tablet 1 mg PO HS 02/05/24 02/05/24 02/04/24 History
prednisone 5 mg tablet 5 mg PO DAILY 02/05/24 02/05/24 02/05/24 History
psyllium 1 packet PO DAILYPRN PRN 02/05/24 02/05/24 02/05/24 History
CONSTIPATION
Active Medications
Generic Name Dose Route Start Last Admin
Trade Name Freq PRN Reason Stop Dose Admin
Acetaminophen 650 mg 02/05/24 16:30
Acetaminophen 325 Mg Tablet PO 03/04/24 16:29
Q4HPRN PRN
RAMIREZ/mild pain/temp > 100.4 F
Acetaminophen 650 mg 02/05/24 16:30
Acetaminophen 650 Mg Rectal Suppository RECTAL 03/04/24 16:29
Q4HPRN PRN
RAMIREZ/ mild pain/ temp >/= 100.4F
Cefepime HCl 1,000 mg 02/06/24 00:00 02/05/24 23:56
Cefepime Hcl 1,000 Mg/11.3 Ml Vial IV 1,000 mg
Q12H SAY Administration
Enoxaparin Sodium 30 mg 02/05/24 18:00 02/05/24 17:46
Enoxaparin Sodium 30 Mg/0.3 Ml Syringe SC 03/04/24 17:59 30 mg
QPM SAY Administration
Famotidine 20 mg 02/05/24 22:00 02/05/24 22:41
Famotidine 20 Mg Tablet PO 03/04/24 21:59 20 mg
HS SAY Administration
Lactated Ringer's 1,000 mls @ 100 mls/hr 02/05/24 14:34 02/06/24 03:55
Lr IV 1,000 mls
.Q10H SAY Administration
Metronidazole 100 mls @ 100 mls/hr 02/06/24 10:00 02/06/24 10:46
Flagyl 500 Mg IV 100 mls
Q8H SAY Administration
Lorazepam 1 mg 02/05/24 22:00 02/05/24 22:41
Lorazepam 1 Mg Tablet PO 03/04/24 21:59 1 mg
HS SAY Administration
Non-Formulary Medication 20 mg 02/05/24 22:00
Isotretinoin PO 03/04/24 21:59
HS SAY
Non-Formulary Medication 45 mg 02/05/24 14:34
Leuprolide Acetate (6 Month) [Lupron Depot (6 Month)] IM 03/04/24 14:33
Q180D SAY
Polyethylene Glycol 17 grams 02/06/24 08:00 02/06/24 08:29
Polyethylene Glycol Powder 17 Grams Packet PO 03/05/24 07:59 17 grams
DAILY SAY Administration
Prednisone 5 mg 02/06/24 08:00 02/06/24 08:29
Prednisone 5 Mg Tablet PO 03/05/24 07:59 5 mg
DAILY SAY Administration
Sennosides 8.6 mg 02/05/24 20:00 02/06/24 08:29
Sennosides (Senokot) 8.6 Mg Tablet PO 03/04/24 19:59 8.6 mg
BID SAY Administration
Sodium Chloride 0 flush 02/05/24 15:00
Sodium Chloride 0.9% (Flush) Syringe IV 03/04/24 14:59
PER PROTOCOL SAY
Sterile Water 10 ml 02/06/24 00:00 02/05/24 23:57
Sterile Water For Injection 10 Ml Vial IV 03/05/24 00:00 10 ml
Q12H SAY Administration
Review of Systems
-
ROS notable for HPI, otherwise negative
Physical Exam
-
General: No Apparent Distress and Conversant
HEENT: Moist Mucous Membranes; Negative Jaundice
Cardiology: Normal Sinus Rhythm
Pulmonary: Clear
GI: Soft
Extremities: Pulses Present; Negative Edema
Neurology: Non Focal
Skin: Warm
Psych: Calm
Labs
Lab Results
WBC 7.5 10^3/uL (4.8-10.8) 02/06/24 07:11
RBC 2.82 10^6/uL (4.70-6.10) L 02/06/24 07:11
Hgb 9.0 g/dL (13.0-18.0) L 02/06/24 07:11
Hct 28.0 % (39.0-52.0) L 02/06/24 07:11
MCV 99.3 fL (80.0-94.0) H 02/06/24 07:11
MCH 31.9 pg (27.0-31.0) H 02/06/24 07:11
MCHC 32.1 g/dL (33.0-37.0) L 02/06/24 07:11
RDW 15.9 % (11.5-14.5) H 02/06/24 07:11
Plt Count 176 10^3/uL (130-400) 02/06/24 07:11
MPV 10.4 fL (7.4-10.4) 02/06/24 07:11
Abs Immat Gran (auto) 0.1 10^3/uL (0-0.05) H 02/05/24 09:58
Absolute Neuts (auto) 11.7 10^3/uL (1.4-6.5) H 02/05/24 09:58
Absolute Lymphs (auto) 0.7 10^3/uL (1.2-3.4) L 02/05/24 09:58
Absolute Monos (auto) 1.3 10^3/uL (0.1-0.6) H 02/05/24 09:58
Absolute Eos (auto) 0.1 10^3/uL (0-0.7) 02/05/24 09:58
Absolute Basos (auto) 0.0 10^3/uL (0-0.2) 02/05/24 09:58
Immature Gran % 0.6 % (0-0.5) H 02/05/24 09:58
Neutrophils % 83.9 % (42.2-75.2) H 02/05/24 09:58
Lymphocytes % 5.2 % (20.5-51.1) L 02/05/24 09:58
Monocytes % 9.6 % (1.7-9.3) H 02/05/24 09:58
Eosinophils % 0.4 % (0-6) 02/05/24 09:58
Basophils % 0.3 % (0-2) 02/05/24 09:58
Creatinine 1.3 mg/dL (0.7-1.3) 02/06/24 06:51
Vital Signs
Vital Signs
Temp Pulse Resp BP Pulse Ox
98.0 F 99 17 101/65 92
02/06/24 11:55 02/06/24 11:55 02/06/24 11:55 02/06/24 11:55 02/06/24 11:55
--- NOTE | 2024-02-06 12:06 | W.PN.UPDATE ---
Update Note
Progress Note Update
I discussed with patient at length risk and benefit of ERCP including risk of bleeding, infection, perforation, pancreatitis with procedure vs risk of sepsis, pancreatitis and with no ERCP. Pt admits to less than 6 months to live with cancer.
He did discuss with his oncologist Dr. Jacob and wishes to hold off on ERCP for now. His initial complaint was rectal pain and constipation which is now resolving with + stools. I offered to call son and other contact deng and pt declines. No
plan for ERCP at this time. Will sign off. Call if pt changes his mind. Pt now DNR.
[2024-02-06] MEDS: MAXIPIME 1000 MG IV (12:43)
[2024-02-06] MEDS: STERILE WATER FOR INJECTION 10 ML IV (12:43)
[2024-02-06 15:34] VITALS: BP 104/63
[2024-02-06] MEDS: FLAGYL 500 MG PO ×2 (17:40→23:06)
[2024-02-06] MEDS: LOVENOX 30 MG SC (17:40)
[2024-02-06] MEDS: LR IV (19:13)
[2024-02-06 19:45] VITALS: BP 125/71
[2024-02-06] MEDS: OMNICEF 300 MG PO (20:34)
[2024-02-06] MEDS: SENOKOT PO (20:34)
[2024-02-06] MEDS: PEPCID 20 MG PO (20:38)
[2024-02-06 22:58] VITALS: BP 102/59
[2024-02-06] MEDS: ATIVAN 1 MG PO (23:06)
[2024-02-07 03:31] VITALS: BP 91/56
[2024-02-07 07:14] LABS: Hematocrit 27.6 % (39.0-52.0); Hemoglobin 8.9 g/dL (13.0-18.0); Mean Corp Hgb Conc. 32.2 g/dL (33.0-37.0); Mean Corpuscular Hgb 32.4 pg (27.0-31.0); Mean Corpuscular Volume 100.4 fL (80.0-94.0); Mean Platelet Volume 10.4 fL (7.4-10.4); Platelet Count 176 10^3/uL (130-400); Red Blood Cell Count 2.75 10^6/uL (4.70-6.10); Red Cell Dist. Width 15.8 % (11.5-14.5); White Blood Cell Count 6.5 10^3/uL (4.8-10.8)
[2024-02-07 07:52] LABS: ALT (SGPT) 200 U/L (0-50); AST (SGOT) 239 U/L (17-59); Albumin 3.2 g/dl (3.5-5.0); Alkaline Phosphatase 268 U/L (38-126); Blood Urea Nitrogen 28 mg/dl (9-20); Calcium 8.4 mg/dl (8.4-10.2); Carbon Dioxide 24 mmol/L (22-30); Chloride 105 mmol/L (98-107); Estimated Creatinine Clearance 27 ml/min; Glucose 111 mg/dl (70-99); Magnesium 2.1 mg/dl (1.6-2.3); Phosphorus 3.3 mg/dl (2.5-4.5); Potassium 3.8 mmol/L (3.5-5.1); Sodium 142 mmol/L (135-145); Total Bilirubin 3.8 mg/dl (0.2-1.3); Total Protein 5.7 g/dl (6.3-8.2); eGFR 44.23
[2024-02-07 08:00] VITALS: BP 110/65
[2024-02-07] MEDS: OMNICEF 300 MG PO (08:33)
[2024-02-07] MEDS: DELTASONE 5 MG PO (08:33)
[2024-02-07] MEDS: FLAGYL 500 MG PO (08:33)
--- NOTE | 2024-02-07 08:35 | W.PN.HOSP.TC ---
Today's Communication/Plan
-
discharge
Assessment / Plan
Assessment / Plan
Physical Exam
General: No Apparent Distress, Comfortable and Conversant; No Pain, Jaundice
HEENT: Anicteric and Moist mucous membranes
Respiratory: Clear; No Wheezes, Rales or Rhonchi
Cardiac: S1/S2 and Regular Rhythm; No Murmur
GI: Soft, Non Tender and Normal Bowel Sounds; No Tender
Musculoskeletal: No Edema
Neuro: AO x 3 and No Motor Deficits
Psych: Calm and Intact Judgment/Insight
88M HX Metastatic Prostate CA s/p XRT HTN, HLD p/w severe constipation rectal pain and some lower abdominal discomfort associate fever.
Sepsis with hypotension: 1.4 L septic NS fluid bolus
Source : Biliary vs Colitis
NEG straight cath UA
HX PCN allergy but tolerates to CFP
- IVF completed
- received empiric IV Vancomycin Cefepime plus Flagyl
- MRSA screen Neg
- f/u BCx NGTD
- ID consult appreciated IV abx transitioned to oral cefdinir and metronidazole to continue for 7 days
Filling defects are seen within the common bile duct proximally and distally,
choledocholithiasis, or intraductal masses/metastases.
Mild intrahepatic biliary ductal dilation
New onset mild transaminitis. Nl TB
- MRCP appreciated
- GI consult appreciated ERCP recommended however patient declines at this time
Constipation resolved at this time
Wall thickening within the distal rectum suggestive of mild colitis DDX: stercoral colitis
-constipation since resolved with bowel regimen and enema
BECCA due to sepsis : current Cr 1.7
Underlying CKD3 with baseline Cr 1.3
- LR IVF and f/u Cr since improved to baseline
-BECCA resolved
Metastatic prostate cancer. s/p XRT to left hip with bony mets.
On hormonal and immune therapy.
Oncology Eval
Hx Hypertension p/w hypotension
- Hold Amlodipine, Losartan/ HCTZ
-BP remains well controlled without aforementioned antihypertensives
-recommend to continue hold of BP medications and follow up with primary care provider to determine when safe to resume, if necessary to resume
HLD
-hold atorvastatin due to new abn LFTS
DVT Px: LMWH
DNR as per patient
Medically stable for discharge home with outpatient follow up recommendations.
Total Time Preparing Discharge ___50____ minutes including examination of the patient, summary of the hospital stay, instructions for continuing care to all relevant caregivers; and preparation of discharge records, prescriptions, and referral
forms if necessary.
Anticipated Discharge: Today
Subjective/Interval History
-
Date of Service: February 07, 2024
Seen and examined at bedside in no acute distress resting comfortably in bed. Reports increased reflux following start of oral antibiotics but otherwise feels well. Eager to go home.
Objective Data
-
Labs:
Laboratory Results
02/07/24
06:27
WBC 6.5
Hgb 8.9 L
Hct 27.6 L
Plt Count 176
Sodium 142
Potassium 3.8
Chloride 105
Carbon Dioxide 24
BUN 28 H
Creatinine 1.5 H
Glucose 111 H
Calcium 8.4
Total Bilirubin 3.8 H
AST 239 H
ALT 200 H
Alkaline Phosphatase 268 H
Vital Signs:
Vital Signs
Temp Pulse Resp BP Pulse Ox
98.8 F 85 22 110/65 96
02/07/24 08:00 02/07/24 08:00 02/07/24 08:00 02/07/24 08:00 02/07/24 08:00
I&O
02/06/24 02/07/24 02/08/24
06:59 06:59 06:59
Intake Total 1200 / 1200 300 / 300
Output Total 0 / 0
Balance 1200 / 1200 300 / 300
[2024-02-07] MEDS: MIRALAX PO (08:37)
[2024-02-07] MEDS: SENOKOT PO (08:37)
--- NOTE | 2024-02-07 08:48 | W.PN.ID1 ---
Addendum entered and electronically signed by Gary Serra, 02/07/24 17:27:
I saw and evaluated the patient. I reviewed the resident�s note and agree with findings and plan as documented in the resident�s note.
LFTs and bilirubin noted to be increasing. Patient declined recent ERCP. Continue antibiotics.
If LFTs and bilirubin continue to rise yet patient declines intervention, goals of care should be further discussed.
Original Note:
Date of Service
Date of Service: February 07, 2024
Today's Communication
Continue antibiotics po
Assessment / Plan
Severe Constipation
Febrile
Leukocytosis
Hx Metastatic Prostate CA s/p XRT,
HTN
Recommendations:
-Afebrile at time of exam,
-CT Abdomen: Filling defects are seen within the common bile duct proximally and distally, measuring up to 1.9 cm in diameter. Mild intrahepatic biliary ductal dilation. Multiple hepatic metastases, pulmonary metastases, and osseous metastases that
were previously noted in prior imaginings.
-WBC within normal limits, continued elevation LFTs compared to yesterday, Cr 1.5
-Blood Cultures: negative
-Monitor temp curve and WBC count
-As per GI and Oncology, no further interventional procedures will be conducted at this time due to patients poor prognosis/quality of life effect
-Maintain bowel regimen
-Continue cefdinir and metronidazole p.o.
Subjective / Review of Systems
Patient is afebrile, denies any nausea vomiting abdominal pain.
Review of Systems: No Fever, No Chills, No Nausea and No Vomiting
Vital Signs / Physical Exam
Vital Signs
Vital Signs
Temp Pulse Resp BP Pulse Ox
98.8 F 85 22 110/65 96
02/07/24 08:00 02/07/24 08:00 02/07/24 08:00 02/07/24 08:00 02/07/24 08:00
Physical Exam
Constitutional: No Acute Distress
Cardiovascular: Regular Rate and S1/S2
Pulmonary: Clear
Gastrointestinal: Soft, Non Tender and Distended
Skin: Warm and Dry
Neurological: Awake, Alert and Oriented
Objective Data
Lab Data
Lab Results
02/07/24 06:27
02/07/24 06:27
PT 14.9 Sec (11.4-14.6) H 02/06/24 06:51
INR 1.12 02/06/24 06:51
Estimated Creat Clear 27 ml/min 02/07/24 06:27
Lactic Acid Cancelled 02/06/24 02:34
Total Bilirubin 3.8 mg/dl (0.2-1.3) H 02/07/24 06:27
AST 239 U/L (17-59) H 02/07/24 06:27
ALT 200 U/L (0-50) H 02/07/24 06:27
Alkaline Phosphatase 268 U/L (38-126) H 02/07/24 06:27
Most recent labs reviewed.
Micro Results:
02/05/24 15:16 MRSA Screen - Final
Nose No Methicillin Resistant Staphylococcus aureus isolated.
02/05/24 17:48 Blood Culture - Preliminary
Blood/Venous No Growth in 24 hours- Final report to follow
02/05/24 15:06 Blood Culture - Preliminary
Blood/Venous No Growth in 24 hours- Final report to follow
02/05/24 10:37 Blood Culture - Preliminary
Blood/Venous No Growth in 24 hours- Final report to follow
02/05/24 10:41 Blood Culture - Preliminary
Blood/Venous No Growth in 24 hours- Final report to follow
--- NOTE | 2024-02-07 09:45 | W.PN.ONC2 ---
Today's Communication / Plan
-
abx per ID, follow cultures and fever curve
Impression
Impression
metastatic prostate cancer with recent POD on Taxotere, he has follow up at [facility] for next line therapy early February 2024
Goals remain restorative for cancer treatment
Constipation resolved with bowel regimen
abnormality CBD -does not want to pursue ERCP
Plan
Plan
abx per ID, follow cultures
bowel regimen
OP follow up with medical oncology at [facility] as schedule early February 2024
Subjective/Objective
Subjective
no new complaints
Vital Signs:
Vital Signs
Temp Pulse Resp BP Pulse Ox
98.8 F 85 22 110/65 96
02/07/24 08:00 02/07/24 08:00 02/07/24 08:00 02/07/24 08:00 02/07/24 08:00
Lab Results:
Laboratory Data
WBC 6.5 10^3/uL (4.8-10.8) 02/07/24 06:27
Hgb 8.9 g/dL (13.0-18.0) L 02/07/24 06:27
Plt Count 176 10^3/uL (130-400) 02/07/24 06:27
PT 14.9 Sec (11.4-14.6) H 02/06/24 06:51
INR 1.12 02/06/24 06:51
eGFR 44.23 02/07/24 06:27
[2024-02-07 11:40] VITALS: BP 119/71
[2024-02-07] MEDS: PROTONIX 40 MG PO ×2 (13:11→20:38)
--- NOTE | 2024-02-07 14:12 | CM ---
Chart reviewed and patient was admitted from home, patient lives alone, home when stable, Meals on Wheels information provided to patient.
Plan; Home when stable.
--- NOTE | 2024-02-07 15:37 | W.DCSUMMARY ---
Discharge Summary
Discharge Data
Date of Admission: 02/05/24
Date of Discharge: 02/07/24
-
Pending Results: Yes
Additional Pending Results:
official culture results
Discharge Plan
-
Patient Disposition: Home (Routine Discharge)
Discharge Diagnosis/Procedures: Sepsis secondary to biliary obstruction vs colitis severe constipation
Acute Kidney Injury on Chronic Kidney Disease Stage 3
Metastatic Prostate Cancer
GERD
Condition: Fair
Diet: Low Residue
Additional Diets: Low residue diet for 1 week then advance as tolerated
Activity: As tolerated
Driving Restrictions: Not until seen by your Dr
Bathing Restrictions: None
Blood Work: Repeat CBC and CMP with primary care provider in 1 week of discharge
Activity Restrictions/Additional Instructions:
Please follow up with your primary care provider in 1 week of discharge. Continue your follow up with your oncologists.
cefdinir and flagyll have been prescribed for 7 days to complete treatment infection due to colitis severe constipation vs biliary obstruction
Scheduled laxatives, miralax and sennokot, have been prescribed for severe constipation- hold if diarrhea. Bisacodyl suppository has also been prescribed as needed for no bowel movements in 2 days. These medications are available over the counter.
Famotidine (Pepcid) has been switched to Protonix for treatment GERD, due to kidney function concerns.
Atorvastatin has been discontinued due to elevated liver enzymes. Please follow up with primary care provider or other healthcare provider involved in your care before considering to resume.
Blood pressure medications amlodipine and losartan-hydrochlorothiazide combination medication have been placed on hold due to low normotensive pressures. Please keep daily log of your pressures at home and follow up with your primary care provider
to determine when safe to resume aforementioned medications, if necessary to resume, and/or if alternative medication is required instead.
Please take medications as prescribed/recommended and follow up with primary care provider and/or other healthcare provider involved in your care for refills and/or further adjustment to your medication regimen as necessary.
Referrals:
Quincy Higgins, DO [Family Provider] - in one week
Prescriptions:
New
metronidazole 500 mg Tablet
500 mg PO Q8 7 Days Qty: 21 0RF
sennosides [Senna Laxative] 8.6 mg Tablet
8.6 mg PO BID 30 Days Qty: 60 0RF
Rx Instructions:
hold if diarrhea
pantoprazole 40 mg Tablet,Delayed Release (Dr/Ec)
40 mg PO DAILY 30 Days Qty: 30 0RF
cefdinir 300 mg Capsule
300 mg PO Q12 7 Days Qty: 14 0RF
bisacodyl [Dulcolax (bisacodyl)] 10 mg suppository
10 mg IN DAILY PRN (Reason: Constipation) Qty: 12 0RF
Rx Instructions:
Use if no bowel movements in 2 days
Continued
Lupron Depot (6 Month) 45 mg Syringe Kit
45 mg IM [id number]
calcium carbonate-vitamin D3 [Calcium 600 + D(3)] 600 mg-10 mcg (400 unit) Tablet
1 tab PO BID
ferrous sulfate [Iron (ferrous sulfate)] 325 mg (65 mg iron) Tablet
325 mg PO DAILY
lorazepam 1 mg Tablet
1 mg PO HS
isotretinoin 20 mg Capsule
20 mg PO HS
psyllium Packet
1 packet PO DAILYPRN PRN (Reason: CONSTIPATION)
prednisone 5 mg Tablet
5 mg PO DAILY
Changed
polyethylene glycol 3350 [Miralax] 17 gram Powder In Packet
17 g PO DAILY Qty: 30 0RF
Rx Instructions:
Hold if diarrhea
Held
amlodipine 5 mg Tablet
5 mg PO DAILY
Hold Instructions: Follow up with primary care provider or other healthcare provider involved in your care to determine when safe to resume, if necessary to resume, and/or if an alternative agent is required.
losartan-hydrochlorothiazide 50-12.5 mg Tablet
1 tab PO DAILY
Hold Instructions: Follow up with primary care provider or other healthcare provider involved in your care to determine when safe to resume, if necessary to resume, and/or if an alternative agent is required.
Discontinued
atorvastatin 40 MG tablet
40 mg PO QPM
famotidine 40 mg Tablet
40 mg PO HS
Discharge Orders:
Discharge Patient (As Directed); Ordered 02/07/24
Ordered By: Elian Baum
Discharge Date and Time
Print Language: URDU
[2024-02-07] MEDS: MAALOX 30 ML PO (15:47)
[2024-02-07 16:00] VITALS: BP 144/81
[2024-02-07] MEDS: FLAGYL PO (17:16)
[2024-02-07] MEDS: TUMS EX (EXTRA STRENGTH) CHEWABLE TABLET 300 MG PO (17:18)
--- NOTE | 2024-02-07 17:46 | W.PN.UPDATE ---
Addendum entered and electronically signed by Elian Baum MD 02/07/24 18:44:
Troponin 0.426. Patient however since symptomatically improved
Suspect Non-Ischemic Myocardial Injury 2/2 sepsis/infection
follow up repeat Troponin w/ AM labs
Troponin and EKG to be repeated sooner if patient develops any sort of chest discomfort.
Original Note:
Update Note
Progress Note Update
Discharge held d/t to severe GERD patient attributes to oral abx
Patient also endorses significant gas and bloating
Protonix increased to 40 mg BID, maalox attempted, followed by TUMS w/ lack of relief, Home pepcid also resumed but 20 mg Q8H d/t renal function
abx switched back to IV for now
low residue diet adjusted with low lactose restriction
checking EKG and troponin to rule out cardiac etiology (no significant changes EKG, troponin pending)
[2024-02-07] MEDS: STERILE WATER FOR INJECTION 10 ML IV (17:48)
[2024-02-07] MEDS: FLAGYL 500 MG 100 IV (17:48)
[2024-02-07] MEDS: LOVENOX 30 MG SC (17:49)
[2024-02-07] MEDS: MAXIPIME 1000 MG IV (17:49)
[2024-02-07 18:30] LABS: Troponin I 0.426 ng/ml
[2024-02-07 19:50] VITALS: BP 108/70
[2024-02-07] MEDS: SENOKOT 8.6 MG PO (20:40)
[2024-02-07] MEDS: ATIVAN 1 MG PO (21:55)
[2024-02-07 23:10] VITALS: BP 110/64
[2024-02-08] MEDS: FLAGYL 500 MG 100 IV ×2 (02:35→09:24)
[2024-02-08 03:15] VITALS: BP 104/61
[2024-02-08] MEDS: MAXIPIME 1000 MG IV (06:02)
[2024-02-08] MEDS: STERILE WATER FOR INJECTION 10 ML IV (06:02)
[2024-02-08 06:53] LABS: Hematocrit 26.4 % (39.0-52.0); Hemoglobin 8.4 g/dL (13.0-18.0); Mean Corp Hgb Conc. 31.8 g/dL (33.0-37.0); Mean Corpuscular Hgb 32.1 pg (27.0-31.0); Mean Corpuscular Volume 100.8 fL (80.0-94.0); Mean Platelet Volume 9.9 fL (7.4-10.4); Platelet Count 175 10^3/uL (130-400); Red Blood Cell Count 2.62 10^6/uL (4.70-6.10); Red Cell Dist. Width 15.6 % (11.5-14.5); White Blood Cell Count 5.1 10^3/uL (4.8-10.8)
[2024-02-08 07:18] LABS: Troponin I 0.328 ng/ml
[2024-02-08 07:19] LABS: ALT (SGPT) 159 U/L (0-50); AST (SGOT) 146 U/L (17-59); Albumin 2.9 g/dl (3.5-5.0); Alkaline Phosphatase 256 U/L (38-126); Blood Urea Nitrogen 19 mg/dl (9-20); Calcium 8.2 mg/dl (8.4-10.2); Carbon Dioxide 24 mmol/L (22-30); Chloride 107 mmol/L (98-107); Estimated Creatinine Clearance 31 ml/min; Glucose 97 mg/dl (70-99); Magnesium 2.3 mg/dl (1.6-2.3); Phosphorus 2.3 mg/dl (2.5-4.5); Potassium 3.4 mmol/L (3.5-5.1); Sodium 140 mmol/L (135-145); Total Bilirubin 1.6 mg/dl (0.2-1.3); Total Protein 5.1 g/dl (6.3-8.2); eGFR 52.51
[2024-02-08 07:35] VITALS: BP 139/82
[2024-02-08] MEDS: PROTONIX 40 MG PO (07:35)
[2024-02-08] MEDS: MIRALAX 17 GRAMS PO (07:35)
[2024-02-08] MEDS: DELTASONE 5 MG PO (07:35)
[2024-02-08] MEDS: SENOKOT 8.6 MG PO (07:35)
--- NOTE | 2024-02-08 07:36 | W.PN.HOSP.TC ---
Addendum entered and electronically signed by Elian Baum MD 02/08/24 16:42:
Troponin 0.426 since trended down, chest pain free, likely Non-Ischemic Myocardial Injury 2/2 sepsis/infection
Protonix adjusted back to daily with GI symptoms likely d/t oral Flagyll since Discontinued (similarly lactose restriction also discontinued)
Original Note:
Today's Communication/Plan
-
Likely discharge later today if tolerating oral abx as per ID
Assessment / Plan
Assessment / Plan
Physical Exam
General: No Apparent Distress, Comfortable and Conversant; No Pain, Jaundice
HEENT: Anicteric and Moist mucous membranes
Respiratory: Clear; No Wheezes, Rales or Rhonchi
Cardiac: S1/S2 and Regular Rhythm; No Murmur
GI: Soft, Non Tender and Normal Bowel Sounds; No Tender
Musculoskeletal: No Edema
Neuro: AO x 3 and No Motor Deficits
Psych: Calm and Intact Judgment/Insight
88M HX Metastatic Prostate CA s/p XRT HTN, HLD p/w severe constipation rectal pain and some lower abdominal discomfort associate fever.
Sepsis with hypotension: 1.4 L septic NS fluid bolus
Source : Biliary vs Colitis
NEG straight cath UA
HX PCN allergy but tolerates to CFP
- IVF completed
- received empiric IV Vancomycin Cefepime plus Flagyl
- MRSA screen Neg
- f/u BCx NGTD
- ID consult appreciated IV abx transitioned to oral cefdinir and metronidazole, patient however not tolerating oral flagyll, abx subsequently switched to Cefuroxime 500 mg BID to cont through 02/14/[address]
-Filling defects within the common bile duct proximally and distally possibly d/t choledocholithiasis or intraductal masses/metastases.
-Mild intrahepatic biliary ductal dilation
-possible mild colitis
-Known Metastatic diz Liver Lung Bone
MRCP appreciated
1. OBSTRUCTING CHOLEDOCHOLITHIASIS in the distal common bile duct. Moderate to severe biliary dilatation.
2. MULTIFOCAL HEPATIC METASTATIC DISEASE.
3. Moderate hepatic cirrhosis.
4. Cholelithiasis.
5. Mild pancreatic ductal dilatation.
6. Moderate chronic bilateral renal disease.
7. Severe diverticulosis in the sigmoid colon.
8. 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
9. Moderate distention of the urinary bladder and multiple urinary bladder diverticula.
10. 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
GI consult appreciated ERCP recommended patient however declines at this time
Constipation resolved at this time
Wall thickening within the distal rectum suggestive of mild colitis DDX: stercoral colitis
-constipation since resolved with bowel regimen and enema
BECCA due to sepsis : current Cr 1.7
Underlying CKD3 with baseline Cr 1.3
- LR IVF and f/u Cr since improved to baseline
-BECCA resolved
Metastatic prostate cancer. s/p XRT to left hip with bony mets.
On hormonal and immune therapy.
Oncology Eval
Hx Hypertension p/w hypotension
- Hold Amlodipine, Losartan/ HCTZ
-BP remains well controlled without aforementioned antihypertensives
-recommend to continue hold of BP medications and follow up with primary care provider to determine when safe to resume, if necessary to resume
HLD
-hold atorvastatin due to new abn LFTS
DVT Px: LMWH
DNR as per patient
If tolerating oral abx, Medically stable for discharge home with outpatient follow up recommendations.
Total Time Preparing Discharge ___50____ minutes including examination of the patient, summary of the hospital stay, instructions for continuing care to all relevant caregivers; and preparation of discharge records, prescriptions, and referral
forms if necessary.
Anticipated Discharge: Today
Subjective/Interval History
-
Date of Service: February 08, 2024
Symptomatically improved, earlier symptoms GERD GI upset resolved. Tolerating diet. overall reports feeling well. Denies new acute issues at this time. Eager to go home.
Objective Data
-
Labs:
Laboratory Results
02/08/24
06:08
WBC 5.1
Hgb 8.4 L
Hct 26.4 L
Plt Count 175
Sodium 140
Potassium 3.4 L
Chloride 107
Carbon Dioxide 24
BUN 19
Creatinine 1.3
Glucose 97
Calcium 8.2 L
Total Bilirubin 1.6 H D
AST 146 H
ALT 159 H
Alkaline Phosphatase 256 H
Vital Signs:
Vital Signs
Temp Pulse Resp BP Pulse Ox
97.5 F 82 18 104/61 93
02/08/24 03:15 02/08/24 03:15 02/08/24 03:15 02/08/24 03:15 02/08/24 03:15
I&O
02/07/24 02/08/24 02/09/24
06:59 06:59 06:59
Intake Total 300 / 300 460 / 460
Output Total 0 / 0
Balance 300 / 300 460 / 460
[2024-02-08] MEDS: POTASSIUM PHOSPHATE 259.0909 MEQ IV (10:27)
--- NOTE | 2024-02-08 10:48 | W.PN.ID1 ---
Date of Service
Date of Service: February 08, 2024
Today's Communication
Can dc home on cefuroxime 500mg po bid through 02/14/24.
Assessment / Plan
Febrile- resolved
Leukocytosis - resolved
Biliary obstruction - stone vs cancer
Prostate ca with mets Liver, pulm, osseous mets
HTN
Recommendations:
-CT Abdomen: Filling defects are seen within the common bile duct proximally and distally, measuring up to 1.9 cm in diameter. Mild intrahepatic biliary ductal dilation. Multiple hepatic metastases, pulmonary metastases, and osseous metastases that
were previously noted in prior imaginings.
-Blood Cultures: negative
-Monitor temp curve and WBC count
-As per GI and Oncology, no further interventional procedures will be conducted at this time due to patients poor prognosis/quality of life effect.
- Intolerance to po metronidazole.
-Can dc home on cefuroxime 500mg po bid through 02/14/24.
Chief Complaint
-: Other (jaundice)
Subjective / Review of Systems
No complaints. GI upset/bloating resolved.
Vital Signs / Physical Exam
Vital Signs
Vital Signs
Temp Pulse Resp BP Pulse Ox
97.7 F 89 16 139/82 95
02/08/24 07:35 02/08/24 07:35 02/08/24 07:35 02/08/24 07:35 02/08/24 08:00
Physical Exam
Constitutional: No Acute Distress and Comfortable
Pulmonary: Clear
Gastrointestinal: Soft, Non Tender and Normal Bowel Sounds
Neurological: AO x 3
Objective Data
Lab Data
Lab Results
02/08/24 06:08
02/08/24 06:08
PT 14.9 Sec (11.4-14.6) H 02/06/24 06:51
INR 1.12 02/06/24 06:51
Estimated Creat Clear 31 ml/min 02/08/24 06:08
Lactic Acid Cancelled 02/06/24 02:34
Total Bilirubin 1.6 mg/dl (0.2-1.3) H D 02/08/24 06:08
AST 146 U/L (17-59) H 02/08/24 06:08
ALT 159 U/L (0-50) H 02/08/24 06:08
Alkaline Phosphatase 256 U/L (38-126) H 02/08/24 06:08
Most recent labs reviewed.
Micro Results:
02/05/24 10:37 Blood Culture - Preliminary
Blood/Venous No Growth in 72 hours- Final report to follow
02/05/24 17:48 Blood Culture - Preliminary
Blood/Venous No Growth in 48 hours- Final report to follow
02/05/24 15:06 Blood Culture - Preliminary
Blood/Venous No Growth in 48 hours- Final report to follow
02/05/24 10:41 Blood Culture - Preliminary
Blood/Venous No Growth in 48 hours- Final report to follow
02/05/24 15:16 MRSA Screen - Final
Nose No Methicillin Resistant Staphylococcus aureus isolated.
Care Review
Plan reviewed with: Physician (Dr. Baum)
[2024-02-08] MEDS: CEFTIN 500 MG PO ×2 (11:21→17:20)
[2024-02-08 11:30] VITALS: BP 114/76
[2024-02-08 15:00] VITALS: BP 113/64
--- NOTE | 2024-02-08 16:39 | W.DCSUMMARY ---
Discharge Summary
Discharge Data
Date of Admission: 02/05/24
Date of Discharge: 02/08/24
-
Pending Results: Yes
Additional Pending Results:
official culture results
Discharge Plan
-
Patient Disposition: Home (Routine Discharge)
Discharge Diagnosis/Procedures: Sepsis secondary to biliary obstruction vs colitis severe constipation
Acute Kidney Injury on Chronic Kidney Disease Stage 3
Metastatic Prostate Cancer
GERD
Condition: Fair
Diet: Low Residue
Additional Diets: Low residue diet for 1 week then advance as tolerated
Activity: As tolerated
Driving Restrictions: Not until seen by your Dr
Bathing Restrictions: None
Blood Work: Repeat CBC and CMP with primary care provider in 1 week of discharge
Activity Restrictions/Additional Instructions:
Please follow up with your primary care provider in 1 week of discharge. Continue your follow up with your oncologists.
Cefuroxime 500 mg twice a day has been prescribed to continue through 02/14/24 for treatment infection possibly due to severe constipation vs biliary obstruction
Scheduled laxatives, miralax and sennokot, have been prescribed for severe constipation- hold if diarrhea. Bisacodyl suppository has also been prescribed as needed for no bowel movements in 2 days. These medications are available over the counter.
Famotidine (Pepcid) has been switched to Protonix for treatment GERD, due to kidney function concerns.
Atorvastatin has been discontinued due to elevated liver enzymes. Please follow up with primary care provider or other healthcare provider involved in your care before considering to resume.
Blood pressure medications amlodipine and losartan-hydrochlorothiazide combination medication have been placed on hold due to low normotensive pressures. Please keep daily log of your pressures at home and follow up with your primary care provider
to determine when safe to resume aforementioned medications, if necessary to resume, and/or if alternative medication is required instead.
Please take medications as prescribed/recommended and follow up with primary care provider and/or other healthcare provider involved in your care for refills and/or further adjustment to your medication regimen as necessary.
Referrals:
Quincy Higgins, DO [Family Provider] - in one week
Prescriptions:
New
sennosides [Senna Laxative] 8.6 mg Tablet
8.6 mg PO BID 30 Days Qty: 60 0RF
Rx Instructions:
hold if diarrhea
pantoprazole 40 mg Tablet,Delayed Release (Dr/Ec)
40 mg PO DAILY 30 Days Qty: 30 0RF
bisacodyl [Dulcolax (bisacodyl)] 10 mg suppository
10 mg [place] DAILY PRN (Reason: Constipation) Qty: 12 0RF
Rx Instructions:
Use if no bowel movements in 2 days
cefuroxime axetil 500 mg Tablet
500 mg PO BID Qty: 13 0RF
Rx Instructions:
To continue through 02/14/24 then stop
Continued
Lupron Depot (6 Month) 45 mg Syringe Kit
45 mg IM [id number]
calcium carbonate-vitamin D3 [Calcium 600 + D(3)] 600 mg-10 mcg (400 unit) Tablet
1 tab PO BID
ferrous sulfate [Iron (ferrous sulfate)] 325 mg (65 mg iron) Tablet
325 mg PO DAILY
lorazepam 1 mg Tablet
1 mg PO HS
isotretinoin 20 mg Capsule
20 mg PO HS
psyllium Packet
1 packet PO DAILYPRN PRN (Reason: CONSTIPATION)
prednisone 5 mg Tablet
5 mg PO DAILY
Changed
polyethylene glycol 3350 [Miralax] 17 gram Powder In Packet
17 g PO DAILY Qty: 30 0RF
Rx Instructions:
Hold if diarrhea
Held
amlodipine 5 mg Tablet
5 mg PO DAILY
Hold Instructions: Follow up with primary care provider or other healthcare provider involved in your care to determine when safe to resume, if necessary to resume, and/or if an alternative agent is required.
losartan-hydrochlorothiazide 50-12.5 mg Tablet
1 tab PO DAILY
Hold Instructions: Follow up with primary care provider or other healthcare provider involved in your care to determine when safe to resume, if necessary to resume, and/or if an alternative agent is required.
Discontinued
atorvastatin 40 MG tablet
40 mg PO QPM
famotidine 40 mg Tablet
40 mg PO HS
Discharge Orders:
Discharge Patient (As Directed); Ordered 02/08/24
Ordered By: Elian Baum
Discharge Date and Time
Print Language: ANGUILLAN
== END 2024-02-08 17:49 | disposition home or self-care (01) | DRG 872 ==
LOC: 4 WEST ACU 13:08
PROVIDERS: Nurse Practitioner Adult Health; Student in an Organized Health Care Education/Training Program; ADMITTING PHYSICIAN Internal Medicine; ATTENDING PHYSICIAN Internal Medicine; CONSULT PHYSICIAN Internal Medicine; CONSULT PHYSICIAN Internal Medicine Hematology & Oncology; EMERGENCY PHYSICIAN Emergency Medicine; FAMILY PHYSICIAN Family Medicine; OTHER PHYSICIAN Internal Medicine Infectious Disease
DX: A41.9 Sepsis, unspecified organism (principal); K80.51 Calculus of bile duct without cholangitis or cholecystitis with obstruction; C78.00 Secondary malignant neoplasm of unspecified lung; C78.7 Secondary malignant neoplasm of liver and intrahepatic bile duct; C79.51 Secondary malignant neoplasm of bone; N17.9 Acute kidney failure, unspecified; I5A Non-ischemic myocardial injury (non-traumatic); K59.09 Other constipation; K52.9 Noninfective gastroenteritis and colitis, unspecified; I12.9 Hypertensive chronic kidney disease with stage 1 through stage 4 chronic kidney disease, or unspecified chronic kidney disease; N18.30 Chronic kidney disease, stage 3 unspecified; M79.81 Nontraumatic hematoma of soft tissue; R74.01 Elevation of levels of liver transaminase levels; R65.20 Severe sepsis without septic shock; E78.00 Pure hypercholesterolemia, unspecified; I95.9 Hypotension, unspecified; C61 Malignant neoplasm of prostate; K21.9 Gastro-esophageal reflux disease without esophagitis; I25.10 Atherosclerotic heart disease of native coronary artery without angina pectoris; I70.0 Atherosclerosis of aorta; Z66 Do not resuscitate; Z60.2 Problems related to living alone; Z11.52 Encounter for screening for COVID-19; Z63.5 Disruption of family by separation and divorce; Z92.21 Personal history of antineoplastic chemotherapy; Z92.3 Personal history of irradiation; Z88.1 Allergy status to other antibiotic agents; Z88.0 Allergy status to penicillin; Z88.2 Allergy status to sulfonamides
CPT/HCPCS: 51701; 74177; 74183; 80053; 80202; 81003; 81015; 82728; 83540; 83550; 83605; 83690; 83735; 84100; 84484; 85025; 85027; 85610; 87040; 87070; 87811; 93005; 96361; 96365; 96367; 96375; 99285; A9575; Q9967